=== PATIENT | male | born 1965 | race Two or more races ===

== ENCOUNTER 2018-10-13 06:00 | Day surgery (SDC) | payer OTHER ==
[2018-10-10 09:23] VITALS: BMI 28.3
[2018-10-13] MEDS ORDERED: MIDAZOLAM HCL 2 MG/2 ML SINGLE DOSE VIAL ONE ×2 (06:39→07:37)
[2018-10-13] MEDS ORDERED: ROPIVACAINE HCL 0.5% 30ML VIAL ONE (06:40)
[2018-10-13] MEDS ORDERED: KETOROLAC TROMETHAMINE 30 MG/1 ML VIAL ONE (07:43)
[2018-10-13] MEDS ORDERED: DEXAMETHASONE SOD PHOSPHATE 4 MG/1 ML VIAL ONE (07:43)
[2018-10-13] MEDS ORDERED: ceFAZolin SODIUM 1 GM VIAL ONE (07:43)
[2018-10-13] MEDS ORDERED: ONDANSETRON 4 MG/2 ML VIAL ONE (07:43)
[2018-10-13] MEDS ORDERED: SUCCINYLCHOLINE CHLORIDE 200 MG/10 ML VIAL ONE (07:45)
[2018-10-13] MEDS ORDERED: PROPOFOL 20 ML ONE ×5 (07:45→08:41)
[2018-10-13] MEDS ORDERED: TRANEXAMIC ACID 1000 MG/10 ML VIAL ONE (08:29)
--- NOTE | 2018-10-13 09:18 | OP ---
Operative Note - Note: Operative Date: 10/13/18 Pre-Operative Diagnosis: Right shoulder impingement syndrome Operation: Right shoulder open: 1. Neer Decompression. 2. Carmel procedure. 3. Rotator cuff repair Post-Operative Diagnosis: Same as Pre-op Surgeon: Alexsander Tate Invoicing Machine Operator: Tesfaye Tate Anesthesiologist/CAR WHACKER: Jesus Marcos Anesthesia: General Estimated Blood Loss (mls): 50 Fluid Volume Replaced (mls): 800 (Crystalloid) Operative Report Dictated: Yes
[2018-10-13] MEDS ORDERED: oxyCODONE HCL 5 MG TABLET PO PRN (10:34)
[2018-10-13] MEDS ORDERED: ONDANSETRON 4 MG/2 ML VIAL IVPUSH PRN (10:34)
[2018-10-13 10:44] VITALS: TEMP 98
[2018-10-13] MEDS ORDERED: LACTATED RINGERS SOLUTION 1,000 ML IV SCH (10:45)
[2018-10-13 12:06] VITALS: PULSE 62
[2018-10-13 12:09] VITALS: BP 135/79
--- NOTE | 2018-10-13 13:25 | OP ---
DATE OF OPERATION: 10/13/2018 SURGEON: Alexsander Tate MD DINKER: Tesfaye Tate MD, MICHAEL Ludwig PREOPERATIVE DIAGNOSIS: Rotator cuff tear with impingement, right shoulder. POSTOPERATIVE DIAGNOSIS: Rotator cuff tear with impingement, right shoulder. OPERATION PERFORMED: 1. Excision arthroplasty, clavicle (Carmel). 2. Acromioplasty. 3. Transection of coracoacromial ligament. 4. Repair of rotator cuff. ANESTHESIA: Conscious sedation with scalene block. ANTIBIOTICS GIVEN: Kefzol 2 g OPERATION IN DETAIL: The patient was correctly identified, brought into the operating room. Right upper limb was prepped, draped in the routine manner with Betadine scrub solution, wiped with alcohol, and DuraPrep applied. A right upper limb free arm drape applied. Patient was placed in a beach-chair position on a beach-chair frame. The incision was made from the tip of the acromion to the tip of the coracoid in the lines of Shon. The dissection was taken through the skin and subcutaneous tissue to the deltoid. The deltoid enabled easy access to the superior surface of the clavicle. A sharp Hohmann was placed around each clavicular structure distally, that is from posterior to anterior, and the acromioclavicular joint identified. A sharp dissection utilized to dissect out the joint. An oscillating saw was utilized to bevel, cut, and osteotomized the clavicle 1 cm from the AC joint. This was beveled from lateral to medial, from superior to inferior. The deltoid was split for about 2 cm to gain access to the CA ligament. Peanut was utilized to free the muscle off the ligament. Two Hohmann retractors the muscle to give clear access and easy visibility of the CA ligament, which was then incised from inferior to superior using a 15 blade knife. This extended up into the shoulder joint, freeing the entire CA ligament completely. Hemostasis was achieved with bipolar Bovie. With finger dissection, a subacromial palpation revealed an extremely tight tunnel. This was impossible to enter even with putting the arm downwards with my probing finger in the subacromial space. The only way I could get access to this was having performed the acromioplasty as follows. A blunt Hohmann was placed lipped underneath the acromion leaving the humeral head downwards. The soft tissue was lifted superiorly. The actual bed of the joint was readily seen. This was resected undercutting the acromion to raise the roof of the shoulder joint. The inferior bone block was resected with no difficulty. It was then palpated carefully to find a beaked tip of acromion readily digging into the tendon, and this, itself, was excised separately using oscillating saw. Hemostasis achieved again. The rotator cuff was visualized and found to have a small partial tear in the tendon. I went ahead with a No. 1 Vicryl suture and after excising the edges of the tear, I sutured this with No. 1-0 Vicryl. Washed out liberally with saline. Because of the oozy nature of this, a drain was placed; this was a 1/8-inch Hemovac drain. The tissues were closed as follows: The capsule and muscle 1 Vicryl, subcutaneous 1 and 2-0 Vicryl, skin with 3-0 Monocryl and Steri-Strips. Sling applied. Operation, while difficulty was a very oozy moist joint, one dose of TXA was given at the time of the incision of the skin as it was noted that there was extensive bleeding accordingly. Blood 50 mL was estimated to have been lost in this operation. MD ELIN Harrell/[id number]
--- NOTE | 2018-10-17 16:04 | PATH ---
Surgical Pathology Report Patient Name: JORGE ALBERTO ZALDIVAR Med. Rec. #: [id number] /Age/Gender: 1965 (Age: 53) / M Account: [id number] Location: [facility] Taken: 10/13/2018 Received: 10/13/2018 Reported: 10/17/2018 Physicians: Alexsander Tate M.D. Specimen(s) Received RIGHT SHOULDER CLAVICLE AND ACROMION Clinical History Right shoulder rotator cuff tear, impingement syndrome Final Diagnosis SHOULDER, CLAVICLE, AND ACROMION, RIGHT, DECOMPRESSION: PORTIONS OF CARTILAGE-CAPPED BONE AND SKELETAL MUSCLE. Electronically Signed Mireya Burk M.D. Gross Description Received in formalin labeled "right shoulder clavicle and acromion," is a 5.0 x 2.4 x 1.0 cm aggregate of 4 woo-red bone and soft tissue fragments. Speeder Worker sections are submitted in one cassette, following decalcification. 10/13/201810/13/2018
== END 2018-10-13 12:00 | disposition home or self-care (01) ==
LOC: FASU 06:00
PROVIDERS: ATTEND Orthopaedic Surgery Orthopaedic Surgery of the Spine
PROC: 0MN10ZZ Release Right Shoulder Bursa and Ligament, Open Approach (ICD-10-PCS; 2018-10-13)
PROC: 0LQ10ZZ Repair Right Shoulder Tendon, Open Approach (ICD-10-PCS; 2018-10-13)
PROC: 0PB90ZZ Excision of Right Clavicle, Open Approach (ICD-10-PCS; principal; 2018-10-13 08:10)
DX: M75.41 Impingement syndrome of right shoulder (principal); M75.121 Complete rotator cuff tear or rupture of right shoulder, not specified as traumatic
CPT/HCPCS: 88304-TC; 88311-TC; 94760